=== PATIENT | male | born 1970 | race Caucasian/White ===

== ENCOUNTER 2021-10-12 18:27 | Emergency (ER) | payer OTHER, SELFPAY ==
--- NOTE | 2021-10-12 18:45 | ED.URI ---
HPI - URI/Sore Throat General Chief Complaint: Upper Respiratory Infection Stated Complaint: sinus congestion Time Seen by Provider: 10/12/21 18:32 Source: patient, RN notes reviewed and old records reviewed Mode of arrival: ambulatory Limitations: no limitations History of Present Illness HPI Narrative: 51 [facility] of acute sinus congestion and drainage with headache, facial pain starting at 10 o'clock yesterday. Patient reports that he has forehead pain with sinus congestion. He states that he has been taking Zyrtec DayQuil and NyQuil and some Ibuprofen with no help in his symptoms. Patient reports that his pain to his forehead is 5/10. MD elicited complaint: cough, rhinorrhea, nasal congestion and sinus pain Pertinent past history: sinusitis and seasonal allergies Pain scale (0-10): 5 Able to tolerate fluids by mouth: Yes Related Data Allergies Allergy/AdvReac Type Severity Reaction Status Date / Time No Known Allergies Allergy Unverified 11/05/19 08:56 Review of Systems Review of Systems: CONSTITUTIONAL: Patient reports that he is not sure about fevers, but has had chills, or sweats. EYES: Denies visual changes, redness, or discharge. ENT:Positive for rhinorrhea, congestion, no sore throat, or otalgia. CARDIOVASCULAR: Denies chest pain, palpitations, or edema. RESPIRATORY: some dry cough no dyspnea. GASTROINTESTINAL: Denies abdominal pain, nausea, vomiting, or diarrhea. GENITOURINARY: Denies dysuria or hematuria. SKIN: Denies rash or itching. MUSCULOSKELETAL: Denies back pain, joint pain, or myalgia. NEUROLOGIC: Positive frontal headache, numbness, or weakness. PSYCHIATRIC: Denies anxiety or depression. [facility] Family History Family History Sibling Family history of elevated blood lipids Family history of hypothyroidism Mother Family history of hypothyroidism Father Malignant neoplasm of prostate, Onset Age: 59 Other Family history of chronic obstructive pulmonary disease Social History Social History Smoking status: Never smoker Alcohol intake: current Comments At time of signature, agree with nursing past medical, surgical, social and family history. There is no relevant family history pertinent to the presenting complaint Exam Narrative: GENERAL: Well-appearing, well-nourished, and in no acute distress. HEAD: Normocephalic, atraumatic. EYES: PERRLA and EOMI. ENT: Nares red and swollen with clear rhinorrhea no epistaxis. Mucous membranes moist.TM's normal with dull light reflex, throat with mild redness with no lesions or exudates, some post nasal drainage. NECK: Supple.no lymphadenopathy CHEST: Clear with decreased breath sounds to auscultation. No respiratory distress.SAO2 97% on room air HEART: Regular rate and rhythm. No murmur heard. Normal peripheral pulses. ABDOMEN: Soft, nontender, nondistended, normal active bowel sounds. EXTREMITIES: Normal range of motion. No edema. SKIN: Warm, dry, no rash. NEURO: No focal deficits. Alert and oriented x3. Course Course Level of Care: Express Care Visit MDM - URI/Sore Throat Differential Diagnosis Differential diagnosis: Likely upper respiratory infection, sinusitis, viral infection and pharyngitis Medical Records Attestation: I reviewed the patient's medical records. Critical Care Time Critical Care Time Critical Care Time: No Discharge Plan Discharge Clinical Impression: Bacterial sinusitis Patient Disposition: Home, Self-Care Condition: Stable Instructions: Antibiotic Form, Rhinosinusitis (ED) Additional Instructions: Increase fluids especially juices and water [id number] cough and cold medicine of your choice for your symptoms Claritin, Zyrtec, or Quyen daily take plain Sudafed 2 tablets in a.m. and repeat with 1 tablet around 2 30-3 in afternoon while having symptom
[2021-10-12 18:58] VITALS: BP 125/90; PULSE 88; RESP 16; TEMP 36.5; O2SAT 97
== END 2021-10-12 19:01 | disposition home or self-care (01) ==
PROVIDERS: Emergency Provider Registered Nurse; PCP Family Medicine
DX: J32.9 Chronic sinusitis, unspecified (principal); E78.00 Pure hypercholesterolemia, unspecified; E03.9 Hypothyroidism, unspecified
CPT/HCPCS: 99203; G0463

== ENCOUNTER 2022-04-03 08:01 | Emergency (ER) | payer OTHER, SELFPAY ==
--- NOTE | 2022-04-03 08:05 | ED.URI ---
HPI - URI/Sore Throat General Chief Complaint: Upper Respiratory Infection Stated Complaint: itchy/puffy eyes, cough Time Seen by Provider: 04/03/22 08:05 Source: patient and RN notes reviewed History of Present Illness HPI Narrative: Patient is a 51-year-old male who presents to urgent care with complaints of a cough and itchy eyes states Sunday. Patient states he has been using Visine in the eyes and DayQuil NyQuil. Denies any new fevers. No other acute complaints. No acute distress noted. Patient aware of the plan of care. Some parts of this dictation were generated by voice recognition software and may contain typographical and/or grammatical inaccuracies. Related Data Allergies Allergy/AdvReac Type Severity Reaction Status Date / Time No Known Allergies Allergy Unverified 04/03/22 08:09 Review of Systems Review of Systems: CONSTITUTIONAL: Denies fever, chills, or sweats. EYES: Reports of itchy red watery eyes ENT: Denies rhinorrhea, congestion, sore throat, or otalgia. CARDIOVASCULAR: Denies chest pain, palpitations, or edema. RESPIRATORY: Reports cough without dyspnea GASTROINTESTINAL: Denies abdominal pain, nausea, vomiting, or diarrhea. GENITOURINARY: Denies dysuria or hematuria. SKIN: Denies rash or itching. MUSCULOSKELETAL: Denies back pain, joint pain, or myalgia. NEUROLOGIC: Denies headache, numbness, or weakness. All other systems reviewed are negative, except as documented in HPI. PMFSH Family History Family History Sibling Family history of elevated blood lipids Family history of hypothyroidism Mother Family history of hypothyroidism Father Malignant neoplasm of prostate, Onset Age: 59 Other Family history of chronic obstructive pulmonary disease Social History Social History Smoking status: Never smoker Alcohol intake: current Comments At the time of my signature, I reviewed and agree with the nursing past medical, surgical, social, and family history. There is no relevant family history pertinent to the patient complaint. Exam Narrative: GENERAL: This is a well-nourished, well-developed patient, in no apparent distress. HEAD: normocephalic, atraumatic. EYES: PERRL. Moderately injected bilateral conjunctivae with scant erythema to bilateral sclera. Clear drainage bilaterally. EARS: External ears normal, auditory canals clear and without drainage, TMs normal without perforation. Hearing grossly intact. NOSE: External nose normal with no obvious nasal discharge, nares without redness, no rhinorrhea. THROAT: Mucous membranes moist, posterior pharynx clear. Moderate postnasal drainage NECK: Neck supple CARDIOVASCULAR: Regular rate and rhythm without murmurs, gallops, or rubs. RESPIRATORY: Scant expiratory wheezes throughout. SKIN: warm, intact with no suspicious lesions or rash, good texture and turgor. NEURO: awake, alert, and oriented to person, place and time. There were no obvious focal neurologic abnormalities. EXTREMITIES: No clubbing, cyanosis, or edema. Course Course Level of Care: Express Care Visit Vital Signs Vital signs: Vital Signs Temperature 97.7 F 04/03/22 08:10 Pulse Rate 65 04/03/22 08:10 Respiratory Rate 16 04/03/22 08:10 Blood Pressure 130/80 04/03/22 08:10 Pulse Oximetry 97 04/03/22 08:10 Temperature 97.7 F 04/03/22 08:10 Pulse Rate 65 04/03/22 08:10 Respiratory Rate 16 04/03/22 08:10 Blood Pressure 130/80 04/03/22 08:10 Pulse Oximetry 97 04/03/22 08:10 Reviewed MDM - URI/Sore Throat MDM Narrative Medical decision making narrative: Advised the patient to complete the steroid regimen as prescribed. Be sure to eat and drink with the medication. Try to stop rubbing the eyes and use a cool compress for discomfort. Use the prescription drops to bilateral eyes, wiping applicator tip after each application.
[2022-04-03 08:10] VITALS: BP 130/80; PULSE 65; RESP 16; TEMP 36.5; O2SAT 97
== END 2022-04-03 08:23 | disposition home or self-care (01) ==
PROVIDERS: Emergency Provider Nurse Practitioner Family; PCP Family Medicine
DX: J32.9 Chronic sinusitis, unspecified (principal); H10.13 Acute atopic conjunctivitis, bilateral
CPT/HCPCS: 99213; G0463

== ENCOUNTER 2024-11-04 13:34 | Emergency (ER) | payer OTHER, SELFPAY ==
--- NOTE | 2024-11-04 13:41 | ED.WOUNDLAC ---
HPI - Wound/Laceration General Chief Complaint: Skin/Abscess/Foreign Body Stated Complaint: Staple Removal Time Seen by Provider: 11/04/24 14:10 Source: patient, RN notes reviewed and old records reviewed Mode of arrival: ambulatory Limitations: no limitations History of Present Illness HPI narrative: 54-year-old male presents to the [facility] to have cierra removed. Patient reports that cierra were placed on SundayOctober [facility] at [facility] emergency room, reports negative workup Related Data Home Medications ?Medication ?Instructions ?Recorded ?Confirmed ?Last Taken ?Type rosuvastatin 40 mg tablet mg 11/04/24 Unknown History Allergies Allergy/AdvReac Type Severity Reaction Status Date / Time No Known Allergies Allergy Verified 11/04/24 13:45 Review of Systems Review of Systems: All systems reviewed & are unremarkable except as noted in HPI and below Constitutional: Constitutional: Reports no additional constitutional complaints ENT: Reports system reviewed and no additional complaints, except as documented Cardiovascular: Cardiovascular: Reports no additional cardiovascular complaints, Denies chest pain and Denies dyspnea Respiratory: Respiratory: Reports no additional respiratory complaints, Denies chest congestion, Denies cough and Denies dyspnea Musculoskeletal: Musculoskeletal: Reports no additional musculoskeletal complaints Integumentary/Breasts: Skin/Breast: Reports as per HPI PMFSH Family History Family History Sibling Family history of elevated blood lipids Family history of hypothyroidism Mother Family history of hypothyroidism Father Malignant neoplasm of prostate, Onset Age: 59 Other Family history of chronic obstructive pulmonary disease Social History Social History Smoking status: Never smoker Alcohol intake: current Comments At the time of my signature, I reviewed and agree with the nursing past medical, surgical, social, and family history. There is no relevant family history pertinent to the patient complaint. Exam Const: General: cooperative, healthy appearing, comfortable, no acute distress, well developed, alert and well nourished Nutritional Appearance: well nourished Orientation/consciousness: patient oriented x3 Limitations: no limitations HENMT: Head: normal to inspection Other: Top of head 2 separate sites 1 with 2 cierra on the left anterior portion of scalp, 7 cierra to the left side center scalp Eyes: General: appearance normal, both eyes and all related structures Alignment and Position: alignment normal Neck: Neck: normal visual inspection, full ROM, no lymphadenopathy and no meningeal signs Chest: Chest palpation & inspection: normal inspection of the chest Resp: Effort & Inspection: normal respiratory effort and able to speak in complete sentences Cardio: Rate: regular rate Skin: General skin exam: normal color and no rashes or lesions noted Neuro: General: patient oriented x3, gait normal, moves all extremities and no meningeal signs Cognition (Neuro): normal cognition Speech: normal speech Gait exam (Neuro): Normal gait present Extrem: General: normal to inspection, full ROM, capillary refill normal and normal gait Psych: Appearance: grossly normal and well kempt Mental Status: mental status grossly normal Speech and movement: Normal speech and movement present and Clear speech present Affect: normal affect Attitude: cooperative Course Course Emergency Course: Area cleaned with wound cleanser. Seven cierra in place, had attempted to remove 1, deeper in than the rest. Seven cierra removed without issue Level of Care: Express Care Visit Vital Signs Vital signs: Vital Signs Temperature 98.3 F 11/04/24 13:52 Pulse Rate 78 11/04/24 13:52 Respiratory Rate 16 11/04/24 13:52 Blood Pressure 132/85 11/04/24 13:52 Pulse Oximetry 96 11/04/24 13:52 Temperature 98.3 F 11/04/24 13:52 Pulse Rate 78 11/04/24 13:52 Respiratory Rate 16 11/04/24 13:52 Blood Pressure 132/85 11/04/24 13:52 Pulse Oximetry 96 11/04/24 13:52 Reviewed MDM - Wound/Laceration MDM Narrative Medical decision making narrative: Patient sitting comfortably in exam room. Nontoxic, vitals stable. Patient presents for staple removal. Able to remove cierra without issue Patient appropriate for outpatient treatment with close follow-up Discharge instructions reviewed with patient, as well as provided in writing per nursing staff. The instructions also include specific and strict return/GO TO THE ER as well as f/u information. All questions have been answered, and the patient deny any further questions with discharge and discharge plan. Some parts of this dictation were generated by voice recognition software and may contain typographical and/or grammatical inaccuracies. Differential Diagnosis Differential diagnosis: Likely other (Stable removal) Critical Care Time Critical Care Time Critical Care Time: No Discharge Plan Discharge Clinical Impression: Encounter for removal of cierra Patient Disposition: Home Condition: Stable Instructions: Antibiotic Form, Acute Wounds (ED) Additional Instructions: Wash daily with warm soapy water, pat dry. Do not pick at the wound. You can apply a scant amount of Neosporin twice daily Follow-up with primary care provider Worsening symptoms go to the ER Patient Language: Venezuelan Prescriptions: No Action rosuvastatin 40 mg tablet levothyroxine [Euthyrox] 112 mcg tablet See Rx Instructions .ROUTE .COMPLEX Qty: 30 11RF Dose Instruction: Take 1 tablet by mouth once daily Rx Instructions: Take 1 tablet by mouth once daily Follow-up/Referrals: Roberto Kirkpatrick DO [Primary Care Provider] - 2 Weeks Time of Disposition: 14:21
[2024-11-04 13:52] VITALS: BP 132/85; PULSE 78; RESP 16; TEMP 36.8; O2SAT 96
== END 2024-11-04 14:22 | disposition home or self-care (01) ==
PROVIDERS: Emergency Provider Nurse Practitioner; PCP Internal Medicine
DX: S01.01XD Laceration without foreign body of scalp, subsequent encounter (principal); X58.XXXD Exposure to other specified factors, subsequent encounter
CPT/HCPCS: 99211; G0463

== ENCOUNTER 2024-12-09 09:29 | Outpatient (CLI) | payer OTHER, SELFPAY ==
--- OUTSIDE RECORDS SUMMARY | 2024-12-09 09:39 | XMS_ITS | Clinical Summary ---
Author Organization [facility] Address [address] [place] [address] Care Team Providers Care Manager Community Relations Name Role Phone Roberto Calderon MD Primary Care Provider [phone] Allergies No known active allergies Medications rosuvastatin (CRESTOR) 40 mg tablet Take 1 tablet (40 mg total) by mouth daily 90 tablet 3 11/14/2023 Active sod picosulf-mag ox-citric ac (Clenpiq) 10 mg-3.5 gram- 12 gram/175 mL solution Take as directed 350 mL 11/21/2023 Active aspirin 81 mg enteric coated tablet Take 1 tablet (81 mg total) by mouth daily 11/29/2023 Active levothyroxine (SYNTHROID) 112 mcg tablet Take 1 tablet by mouth once daily 90 tablet 3 12/06/2023 Active diazePAM (VALIUM) 5 mg tablet Take 1 tablet (5 mg total) by mouth 2 (two) times a day 10 tablet 10/26/2024 Active acetaminophen (TYLENOL) 500 mg tablet Take 1-2 tablets (500-1,000 mg total) by mouth every 6 (six) hours as needed for pain (1 tablet for mild to moderate pain. 2 tablets for severe pain) 30 tablet 10/26/2024 Active Active Problems Problem Noted Date Diagnosed Date Encounter for screening for malignant neoplasm o f colon 11/21/2023 Annual physical exam 06/08/2022 Encounters Date Type Department Care Team Description 10/26/2024 5:33 AM CDT - 10/26/2024 6:23 AM CDT Emergency [facility] Emergency Department [address] [place] [address] Florentino Rm MD Fall, initial encounter (Primary Dx); Scalp laceration, initial encounter; Muscle spasms of neck Discharge Disposition: Discharge to home or self care from Last 3 Months Immunizations Immunization Administration Dates Next Due Influenza, Unspecified 03/02/2023(Deferr ed: Patient Refused),03/23/2022(Deferred: Patient Refused) Moderna SARS-CoV-2 Monovalen t Vaccination (12+ YRS) 08/17/2020,07/03/2020 Td, adsorbed 09/28/2003 Tdap 10/26/2024 Medical History Medical History Date Comments Disorder of thyroid Thyroid dise ase Hypothyroidism Hyperlipidemia Family History Medical History Relation Name Comments Thyroid disease Other Family histo ry of Thyroid disorder; Relation Name Status Comments Other Social History Tobacco Use Types Packs/Day Years Used Date Smoking Tobacco: Never Smokeless Tobacco: Never Tobacco Cessation:Counseling Given: Not Answered Alcohol Use Standard Drinks/Week Comments Yes 0 (1 standard drink = 0.6 oz pur e alcohol) AUDIT-C Answer Date Recorded Q1: How often do you have a drink containing alc ohol? 2-4 times a month 12/05/2023 Q2: How many drinks containi ng alcohol do you have on a typical day when you are drinking? 3 or 4 12/05/2023 Q3: How often do you have si x or more drinks on one occasion? Less than monthly 12/05/2023 PHQ-2 Answer Date Recorded PHQ-2 Total Score (If total score is 3 or more points, staff should administer the PHQ-9) 0 11/14/2023 Personal Safety Answer Date Recorded Have you ever been in or are you currently in a harmful physical or emotional relationship or is someone making you feel afraid or unsafe? 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 Gender Identity Not on file Sexual Orientation Not on file Obstetrics History Last Filed Vital Signs Vital Sign Reading Time Taken Comments Blood Pressure 128/96 10/26/2024 6:00 AM CDT Pulse 76 10/26/2024 6:00 AM CDT Temperature 36.8 C (98.3 F) 10/26/2024 1:40 AM CDT Respiratory Rate 16 10/26/2024 6:00 AM CDT Oxygen Saturation 95% 10/26/2024 6:00 AM CDT Inhaled Oxygen Concentration - - Weight 104.3 kg (230 lb) 10/26/2024 12:12 AM CDT Height 170.2 cm (5' 7) 10/26/2024 12:12 AM CDT Body Mass Index 36.02 10/26/2024 12:12 AM CDT Plan of Treatment Health Maintenance Due Date Last Done Comments Hepatitis C Screening 1970 Hepatitis B Screening 1989 Zoster Vaccine (1 of 2) 2021 Covid-19 Vaccine (3 - 2023-2 5 season) 2024 08/17/2020, 07/03/2020 Depression Screening 11/13/2024 11/14/2023, 06/08/2022 Regular Well Visit/Exam 18-64 11/13/2024, 06/08/2022 Influenza Vaccine (#1) 2025 Prostate Cancer Screening-PSA 11/11/2025, 06/15/2022 Colon Cancer Screening-Colonoscopy 12/04/2033 12/05/2023 DTaP/Tdap/Td Vaccine (2 - Td or Tdap) 10/26/2034 10/26/2024, 09/28/2003 Pneumococcal vaccine <65 Aged Out No longer eligible based on patient's age to complete this topic Procedures Procedure Name Priority Date/Time Associated Diagnosis Comments TN SIMPLE REPAIR SCALP/NECK/AX/GENIT/ TRUNK 2.5CM/< Routine 10/26/2024 6:22 AM CDT TN SIMPLE REPAIR SCALP/NECK/AX/GENIT/ TRUNK 2.5CM/< Routine 10/26/2024 6:[address] HEAD AND CERVICAL SPINE WO CONTRAST ED 10/26/2024 12:48 AM CDT COLONOSCOPY 12/05/2023 9:14 AM CDT PSA SCREEN Routine 11/12/2023 1:15 PM CDT Annual physical exam from Last 3 Months or Most Recently Relevant to Health Maintenance Results * TN SIMPLE REPAIR SCALP/NECK/AX/GENIT/TRUNK 2.5CM/< (10/26/2024 6:22 AM CDT) Narrative Florentino Rm MD - 10/26/2024 6:22 AM CDT Florentino Rm MD 10/26/2024 6:23 AM Laceration Repair Date/Time: 10/26/2024 6:22 AM Performed by: Florentino Rm MD Authorized by: Florentino Rm MD RN Notified of Procedure: yes Informed consent: Risks, benefits, alternatives discussed Patient's stated name/ matches armband: Yes Allergies confirmed: yes Consent form signed, dated, timed; matches correct patient, intended procedure and site: No consent form due to emergent status Imaging: Pertinent imaging reviewed, correctly oriented and match to patient identifiers Lab/Diag test results: N/a Supplies, devices and special equipment are available: yes Site/side marked: n/a Immediately prior to the procedure a time out was called: a verbal verification by the procedure participants confirmed correct patient identity, correct site/side marked and visible (if applicable); agreement on procedure to be done; and correct patient positioning Anesthesia method: Local infiltration Local anesthetic: Lidocaine 1% WITH epi Location: Scalp Scalp location: Frontal Length (cm): 0.5 Repair type: Simple Preparation: Patient was prepped and draped in usual sterile fashion Contaminated: no Area cleansed with: Saline Amount of cleaning: Standard Irrigation solution: Sterile saline Irrigation method: Pressure wash Visualized foreign bodies/material removed: no Repair method: Mino Number of mino: 2 Approximation: Close Vermilion border: well-aligned Dressing: Open (no dressing) Patient tolerance of procedure: Tolerated well, no immediate complications Any special post procedure monitoring, testing or other considerations: n/a All specimens identified, labeled and matched to patient identification: n/a Responsible libertarian for transporting specimen(s) to lab determined: n/a Florentino Rm MD IN CLINIC/BEDSIDE ORDERABLE S Final Result * TN SIMPLE REPAIR SCALP/NECK/AX/GENIT/TRUNK 2.5CM/< (10/26/2024 6:20 AM CDT) Narrative Florentino Rm MD - 10/26/2024 6:20 AM CDT Florentino Rm MD 10/26/2024 6:22 AM Laceration Repair Date/Time: 10/26/2024 6:20 AM Performed by: Florentino Rm MD Authorized by: Florentino Rm MD RN Notified of Procedure: yes Informed consent: Risks, benefits, alternatives discussed Patient's stated name/ matches armband: Yes Allergies confirmed: yes Imaging: N/a and pertinent imaging reviewed, correctly oriented and match to patient identifiers Lab/Diag test results: N/a Supplies, devices and special equipment are available: yes Site/side marked: n/a Anesthesia method: Local infiltration Local anesthetic: Lidocaine 1% WITH epi Sedation used: no Location: Scalp Scalp location: Frontal Length (cm): 1.5 Repair type: Simple Preparation: Patient was prepped and draped in usual sterile fashion Contaminated: no Area cleansed with: Saline Amount of cleaning: Standard Irrigation solution: Sterile saline Irrigation method: Pressure wash Visualized foreign bodies/material removed: no Repair method: Turin Number of mino: 5 Vermilion border: well-aligned Dressing: Open (no dressing) Patient tolerance of procedure: Tolerated well, no immediate complications All guidewires, needles, sponges or other items are accounted for: no Any special post procedure monitoring, testing or other considerations: n/a All specimens identified, labeled and matched to patient identification: n/a Responsible libertarian for transporting specimen(s) to lab determined: n/a Florentino Rm MD IN CLINIC/BEDSIDE ORDERABLE S Final Result * CT Head and Cervical Spine WO Contrast (10/26/2024 12:48 AM CDT) Anatomical Region Laterality Modality Head and Neck N/A Computed Tomogra phy 10/26/2024 1:09 AM CDT Impressions 10/26/2024 8:56 AM CDT 1. No acute intracranial process. 2. No evidence of acute fracture in the cervical spine. Dictated by: Ty Rubi MD The radiology attending physician has personally reviewed this study, and had reviewed and/or edited this written report and agrees with it. Electronically signed by: David Adams M.D. Narrative 10/26/2024 8:56 AM CDT EXAMINATION: 1. CT head without contrast 2. CT of the cervical spine without contrast HISTORY: Fall with loss of consciousness TECHNIQUE: CT of the head was performed with images acquired from skull base to vertex without intravenous contrast. CT of the cervical spine was performed according to the standard protocol without intravenous contrast. COMPARISON: None Available. FINDINGS: HEAD: Right cerebellar arachnoid cyst. There is no acute intracranial hemorrhage. Ventricles are of normal size and morphology. No mass effect or midline shift is present. The sauer-white matter differentiation is normal. The visualized portions of the orbits are normal. The visualized portions of the mastoids are normal. Mucosal thickening in bilateral maxillary, ethmoid, and frontal sinuses. No fractures are identified. CERVICAL SPINE: The alignment of the cervical spine is normal. There is no acute fracture. Vertebral bodies are normal in height without compression fractures. Intervertebral disk heights are normal. The craniocervical junction is normal. Limited views of the skull base appear normal. The sphenoid sinus is well aerated. No soft tissue abnormality is identified. There is multilevel facet and uncovertebral joint arthropathy with varying degrees of neural foraminal stenosis. Multilevel degenerative disc disease without high-grade canal stenosis. Procedure Note David Adams MD - 10/26/2024 EXAMINATION: 1. CT head without contrast 2. CT of the cervical spine without contrast HISTORY: Fall with loss of consciousness TECHNIQUE: CT of the head was performed with images acquired from skull base to vertex without intravenous contrast. CT of the cervical spine was performed according to the standard protocol without intravenous contrast. COMPARISON: None Available. FINDINGS: HEAD: Right cerebellar arachnoid cyst. There is no acute intracranial hemorrhage. Ventricles are of normal size and morphology. No mass effect or midline shift is present. The sauer-white matter differentiation is normal. The visualized portions of the orbits are normal. The visualized portions of the mastoids are normal. Mucosal thickening in bilateral maxillary, ethmoid, and frontal sinuses. No fractures are identified. CERVICAL SPINE: The alignment of the cervical spine is normal. There is no acute fracture. Vertebral bodies are normal in height without compression fractures. Intervertebral disk heights are normal. The craniocervical junction is normal. Limited views of the skull base appear normal. The sphenoid sinus is well aerated. No soft tissue abnormality is identified. There is multilevel facet and uncovertebral joint arthropathy with varying degrees of neural foraminal stenosis. Multilevel degenerative disc disease without high-grade canal stenosis. IMPRESSION: 1. No acute intracranial process. 2. No evidence of acute fracture in the cervical spine. Dictated by: Ty Rubi MD The radiology attending physician has personally reviewed this study, and had reviewed and/or edited this written report and agrees with it. Electronically signed by: David Adams M.D. us Anjum Guerrero MD IMG CT PROCEDURES Final Re sult * Colonoscopy (12/05/2023 9:14 AM CDT) Anatomical Region Laterality Modality Other Narrative Procedure Note Florentino Lane MD - 12/05/2023 9:14 AM CDT [facility] Endoscopy Lab Patient Name: Hemanth Romeo Procedure Date: 12/05/2023 9:14 AM Date of : 1970 Admit Type: Outpatient Age: 53 Gender: Male Note Status: Finalized Attending MD: Florentino Lane M.D. Procedure Date: 12/05/2023 Procedure: Colonoscopy Indications: Screening for colorectal malignant neoplasm Providers: Florentino Lane M.D., Maria Luz Milton CRNA (Anesthesia Staff), Jonna Ball RN, Kamila, Wallpaper Printer Helper Referring MD: Roberto Calderon M.D. Medicines: Monitored Anesthesia Care Complications: No immediate complications. Estimated blood loss: Minimal. Estimated Blood Loss: Estimated blood loss was minimal. Procedure: Pre-Anesthesia Assessment: - Prior to the procedure, a History and Physicalwas performed, and patient medications and allergieswere reviewed. The patient's tolerance of previous anesthesia was also reviewed. The risks andbenefits of the procedure and the sedation options and risks were discussed with the patient. All questions were answered, and informed consent was obtained. Prior Anticoagulants: The patient has taken noanticoagulant or antiplatelet agents. ASA Grade Assessment: II -A patient with mild systemic disease. After reviewing the risks and benefits, the patient was deemed in satisfactory condition to undergo the procedure. - The risks and benefits of the procedure and the sedation options and risks were discussed with the patient. All questions were answered and informed consent was obtained. After I obtained informed consent, the scope was passed under direct vision. Throughout theprocedure, the patient's blood pressure, pulse, and oxygen saturations were monitored continuously. The scopewas passed under direct vision. The Colonoscope was introduced through the anus and advanced to the the cecum, identified by appendiceal orifice andileocecal valve. The colonoscopy was performed without difficulty. The patient tolerated the procedurewell. The quality of the bowel preparation was excellent. The quality of the bowel preparation was evaluated using the BBPS ([place] Bowel Preparation Scale)with scores of: Right Colon = 3, Transverse Colon = 3and Left Colon = 3 (entire mucosa seen well with no residual staining, small fragments of stool oropaque liquid). The total BBPS score equals 9. Theileocecal valve, appendiceal orifice, and rectum were photographed. The bowel preparation used wasGoLYTELY via split dose instruction. Findings: Hemorrhoids were found on perianal exam. A 2 mm polyp was found in the rectum. The polyp was sessile. Thepolyp was removed with a cold forceps. Resection and retrieval werecomplete. External hemorrhoids were found during retroflexion. Scattered diverticula were found in the entire colon. Impression: 1) One 2 mm polyp in the rectum, removed with acold forceps. Resected and retrieved. 2) Scattered diverticula were found in the entire colon. 3) External hemorrhoids. Recommendation: - Discharge patient to home (ambulatory). - If the pathology report reveals adenomatoustissue, then repeat the colonoscopy for surveillance in 7 years. - If the pathology report indicates hyperplastic polyp, then repeat colonoscopy for screeningpurposes in 10 years. Procedure Code(s): --- Professional --- 16236, Colonoscopy, flexible; with biopsy, singleor multiple Diagnosis Code(s): --- Professional --- Z12.11, Encounter for screening for malignantneoplasm of colon K64.4, Residual hemorrhoidal skin tags D12.8, Benign neoplasm of rectum K57.30, Diverticulosis of large intestine without perforation or abscess without bleeding CPT copyright 2020 [employer]. All rights reserved. The codes documented in this report are preliminary and upon steward/stewardess third reviewmay be revised to meet current compliance requirements. Florentino Lane M.D. 12/05/2023 9:45:19 AM Number of Addenda: 0 Note Initiated On: 12/05/2023 9:[address] MD ENDOSCOPY PROCEDURES Taylor l Result * PSA screen (11/12/2023 1:15 PM CDT) PSA-Total 0.74 <=3.90 ng/mL Comment: Interpretive Data AGE SEX REFERENCE INTERVAL 0 minutes-150 years Female None 0 minutes-49 years Male None 50-59 years Male 0-3.90 60-69 years Male 0-5.40 70-79 years Male 0-6.20 80-150 years Male 0-6.20 The Silvia PSA Total assay procedure was used. Results from different manufacturers or methods may not be comparable. Serial testing should be performed using the same method. Current interpretive data last revised 21. Testing performed by: [facility], [address] [place] [address], [place]., [address] Blood 11/12/2023 1:15 PM CDT 11/12/2023 1:50 PM CDT us Roberto Calderon MD LAB BLOOD ORDERABLES Final Re sult [facility] [address] [facility] [place] [address] from Last 3 Months or Most Recently Relevant to Health Maintenance Insurance [facility] CHOICE PLUS [facility] HMO/PPO Address: [facility] [address] [place] [address] [facility] CHOICE PLUS [facility]/PPO Address: [place] [address] [facility] Address: [place] [address] [facility] H[facility]/PPO Address: [place] [address] Care Teams Manager Community Relations Relationship Specialty Start Date End Date Roberto Calderon MD PCP - General Family Medicine 06/08/22
--- OUTSIDE RECORDS SUMMARY | 2024-12-09 09:39 | XMS_ITS | Continuity of Care Document ---
Author Organization [facility] Address [address] [place] [address] [place] [address] Phone Care Team Providers Care Grease Renderer Name Role Phone Blu Crawford DO Unavailable Unavailable Advance Directives Directive Yes / No Effective Date File Name No Information Encounters Encounter Description Practice Location Reason(s) For Visit Diagnoses Date Provider Providers Copied on Encounter [facility], [id number] [place] [address] [address], [place], [place], [id number], [place] tel:[phone] [facility] No Information Yvette Landrum. [address] [place], [address], [place]. tel: [phone] Family History Family Member Type Diagnosis Age At Onset No Information Payers Payer name Insurance type Covered green party ID Authoriza tion(s) No Information Social [...]
--- OUTSIDE RECORDS SUMMARY | 2024-12-09 09:39 | XMS_ITS | Referral Summary ---
Author Organization [facility] Address [address] [place] [address] Care Team Providers Care Legal Billing Coordinator Name Role Phone Roberto Calderon MD Primary Care Provider [phone] Encounters Date Type Department Care Team Description 10/26/2024 5:33 AM CDT - 10/26/2024 6:23 AM CDT Emergency [facility] Emergency Department [address] [place] [address] Florentino Rm MD Fall, initial encounter (Primary Dx); Scalp laceration, initial encounter; Muscle spasms of neck Discharge Disposition: Discharge to home or self care from Last 3 Months Allergies No known active allergies Medications rosuvastatin [...] f colon 11/21/2023 Annual physical exam 06/08/2022 Immunizations Immunization Administration Dates Next Due Influenza, Unspecified 03/02/2023(Deferr ed: Patient Refused),03/23/2022(Deferred: Patient Refused) Moderna SARS-CoV-2 Monovalen t Vaccination (12+ YRS) 08/17/2020,07/03/2020 Td, adsorbed 09/28/2003 Tdap 10/26/2024 Social History Tobacco Use Types Packs/Day Years [...] on file 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 Gender Identity Not on file Sexual Orientation Not on file Last Filed Vital Signs Vital Sign Reading [...] 10/26/2024 12:12 AM CDT Plan of Treatment Not on file Procedures Procedure Name Priority Date/Time Associated Diagnosis Comments VA SIMPLE REPAIR SCALP/NECK/AX/GENIT/ TRUNK 2.5CM/< Routine 10/26/2024 6:22 AM CDT VA SIMPLE REPAIR SCALP/NECK/AX/GENIT/ TRUNK 2.5CM/< Routine 10/26/2024 6:[address] HEAD AND CERVICAL SPINE WO CONTRAST ED 10/26/2024 12:48 AM CDT COLONOSCOPY 12/05/2023 9:14 AM CDT PSA SCREEN Routine 11/12/2023 1:15 PM CDT Annual physical exam from Last 3 Months or Most Recently Relevant to Health Maintenance Results * VA SIMPLE REPAIR SCALP/NECK/AX/GENIT/TRUNK 2.5CM/< (10/26/2024 6:22 AM [...] Visualized foreign bodies/material removed: no Repair method: Tyner Number of mino: 2 Approximation: Close Vermilion border: well-aligned Dressing: Open (no dressing) Patient tolerance of procedure: Tolerated well, no immediate complications Any special post procedure monitoring, testing or other considerations: n/a All specimens identified, labeled and matched to patient identification: n/a Responsible democrat for transporting specimen(s) to lab determined: n/a Florentino Rm MD IN CLINIC/BEDSIDE ORDERABLE S Final Result * VA SIMPLE REPAIR SCALP/NECK/AX/GENIT/TRUNK 2.5CM/< (10/26/2024 6:20 AM [...] no Repair method: Mino Number of mino: 5 Vermilion border: well-aligned Dressing: Open (no dressing) Patient tolerance of procedure: Tolerated well, no immediate complications All guidewires, needles, sponges or other items are accounted for: no Any special post procedure monitoring, testing or other considerations: n/a All specimens identified, labeled and matched to patient identification: n/a Responsible democrat for transporting specimen(s) to lab determined: n/a [...] it. Electronically signed by: David Adams M.D. Anjum Guerrero MD IMG CT PROCEDURES Final Re sult * Colonoscopy (12/05/2023 9:14 AM CDT) Anatomical Region Laterality Modality Other Narrative Procedure Note Florentino Lane MD - 12/05/2023 9:14 AM CDT [facility] Endoscopy Lab Patient Name: Hemanth Romeo Procedure Date: 12/05/2023 9:14 AM Date of : 1970 Admit Type: Outpatient Age: 53 Gender: Male Note Status: Finalized Attending MD: Florentino Lane M.D. Procedure Date: 12/05/2023 Procedure: Colonoscopy Indications: Screening for colorectal malignant neoplasm Providers: Florentino Lane M.D., Maria Luz Milton CRNA (Anesthesia Staff), Jonna Ball, CHIRAG, Kamila, Warehouse Stock Clerk Referring MD: Roberto Calderon M.D. Medicines: Monitored [...] bowel preparation was evaluated using the BBPS ([place] Bowel Preparation Scale)with scores of: Right Colon [...] 10 years. Procedure Code(s): --- Professional --- 62106, Colonoscopy, flexible; with biopsy, singleor multiple Diagnosis Code(s): --- Professional --- Z12.11, Encounter for screening for malignantneoplasm of colon K64.4, Residual hemorrhoidal skin tags D12.8, Benign neoplasm of rectum K57.30, Diverticulosis of large intestine without perforation or abscess without bleeding CPT copyright 2020 [employer] [place] [employer]. All rights reserved. The codes documented in this report are preliminary and upon board worker reviewmay be revised to meet current compliance requirements. Florentino Lane M.D. 12/05/2023 9:45:19 AM Number of Addenda: 0 Note Initiated On: 12/05/2023 9:[address]ino Lane MD ENDOSCOPY PROCEDURES Atylor l Result * PSA screen (11/12/2023 1:15 [...] data last revised 21. Testing performed by: [facility], [address] [place] [address]., [address] Blood 11/12/2023 1:15 PM CDT 11/12/2023 1:50 PM CDT us Roberto Calderon MD LAB BLOOD ORDERABLES Final Re sult [facility] [address] [facility] Department [place] [address] from Last 3 Months or Most Recently Relevant to Health Maintenance Insurance [facility] CHOICE PLUS Care Teams Legal Billing Coordinator Relationship Specialty Start Date End Date Roberto Calderon MD PCP - General Family Medicine 06/08/22
[2024-12-09 12:57] LABS: Hematocrit 50.1 % (42.0-52.0); Hemoglobin 16.0 g/dL (14.0-18.0); Immature Granulocyte Percent A 0.4 % (0-0.5); Lymphocytes Absolute Auto 1.90 K/mm3 (0.9-3.2); Mean Corpuscular HGB Conc 31.9 g/dl (32-36); Mean Corpuscular Hemoglobin 30.2 pg (26-34); Mean Corpuscular Volume 94.5 fl (80-100); Nucleated Red Blood Cells Absolute Auto 0.000 K/mm3 (0.0-0.012); Nucleated Red Blood Cells Perc 0.0 % (0.0-0.2); Platelet Count Result 146 k/mm3 (150-375); Red Blood Count 5.30 M/mm3 (4.6-6.20); White Blood Count 8.3 K/mm3 (4.5-10.0)
[2024-12-09 13:06] LABS: Alanine Aminotransferase 43 U/L (6-50); Albumin Level 4.5 g/dL (3.5-5.1); Alkaline Phosphatase 75 U/L (38-126); Anion Gap 8 mmol/L (4-12); Aspartate Amino Transferase 58 U/L (17-59); Bilirubin,Total 0.7 mg/dL (0.2-1.3); Blood Urea Nitrogen 11 mg/dL (9-20); Calcium 9.2 mg/dL (8.4-10.2); Carbon Dioxide 29 mmol/L (22-30); Chloride 99 mmol/L (98-107); Cholesterol 176 mg/dL (0-200); Estimated Glomerular Filt Rate 60; Glucose 100 mg/dL (65-110); HDL Direct 27 mg/dL; Potassium 3.9 mmol/L (3.4-5.0); Sodium 136 mmol/L (137-145); Total Protein 7.7 g/dL (6.3-8.2); Triglycerides 223 mg/dL (<150)
[2024-12-09 13:27] LABS: Free T3 3.93 pg/mL (2.71-6.16); Free T4 Free Thyroxine 0.66 ng/dL (0.78-2.19)
[2024-12-09 17:07] LABS: Thyroid Stimulating Hormone 13.300 uIU/mL (0.465-4.680)
[2024-12-09 17:12] LABS: Prostate Specific Antigen 1.0 ng/mL (< OR = 4.0)
== END 2024-12-09 09:30 | disposition home or self-care (01) ==
LOC: ANHGOSHLAB 09:30
PROVIDERS: PCP Internal Medicine; Visit Provider Internal Medicine
DX: E03.9 Hypothyroidism, unspecified (principal); E78.2 Mixed hyperlipidemia; R53.83 Other fatigue; Z82.49 Family history of ischemic heart disease and other diseases of the circulatory system; Z13.29 Encounter for screening for other suspected endocrine disorder; Z13.0 Encounter for screening for diseases of the blood and blood-forming organs and certain disorders involving the immune mechanism; Z13.228 Encounter for screening for other metabolic disorders; Z12.5 Encounter for screening for malignant neoplasm of prostate
CPT/HCPCS: 36415; 80053; 80061; 82172; 84153; 84439; 84443; 84481; 85025; G0103

== ENCOUNTER 2024-12-25 08:39 | Outpatient (CLI) | payer OTHER, SELFPAY ==
--- OUTSIDE RECORDS SUMMARY | 2024-12-25 08:45 | XMS_ITS | Clinical Summary ---
Author Organization [facility] Address [address] [place] [address] Care Team Providers Care Profile Stitching Machine Operator Name Role Phone Roberto Calderon MD Primary Care Provider [phone] Social History Tobacco Use Types Packs/Day Years Used Date Smoking Tobacco: Never Assessed Sex and Gender Information Value Date Recorded Sex Assigned at Not on file Legal Sex Male 11:52 AM CDT Gender Identity Not on file Sexual Orientation Not on file Plan of Treatment Health Maintenance Due Date Last Done Comments Colorectal Cancer Screening Colonoscopy (10 Years) 1971 Annual Physical 1974 Hepatitis C 1989 Hepatitis B Vaccines (1 of 3 - 19+ 3-dose series) 1990 DTaP, Tdap and Td Vaccines ( 1 - Tdap) 09/29/2003 09/28/2003 Pneumococcal Vaccine: 50+ Years (1 of 1 - PCV) 2021 Zoster Vaccines (1 of 2) 2021 COVID-19 Vaccine (3 - 2023-2 5 season) 2024 08/17/2020, 07/03/2020 Meningococcal B Vaccine Aged Out No l onger eligible based on patient's age to complete this topic Meningococcal Vaccine Aged Out No sandra scott eligible based on patient's age to complete this topic RSV Immunizations Under 20 Months Aged Out No longer eligible b ased on patient's age to complete this topic Insurance [facility] Care Teams Profile Stitching Machine Operator Relationship Specialty Start Date End Date Roberto Calderon MD [address] [phone] PCP - General FAMILY PRACTICE 11/16/23
--- OUTSIDE RECORDS SUMMARY | 2024-12-25 08:45 | XMS_ITS | Clinical Summary ---
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] and matched to patient identification: n/a Responsible constitution party for transporting specimen(s) to lab determined: n/a Florentino Rm MD IN CLINIC/BEDSIDE ORDERABLE S Final Result * SD SIMPLE REPAIR SCALP/NECK/AX/GENIT/TRUNK 2.5CM/< (10/26/2024 6:20 AM [...] and matched to patient identification: n/a Responsible constitution party for transporting specimen(s) to lab determined: n/a [...] Lane MD - 12/05/2023 9:14 AM CDT [facility] Endoscopy Lab Patient Name: Hemanth Romeo Procedure Date: 12/05/2023 9:14 AM Date of : 1970 Admit Type: Outpatient Age: 53 Gender: Male Note Status: Finalized Attending MD: Florentino Lane M.D. Procedure Date: 12/05/2023 Procedure: Colonoscopy Indications: Screening for colorectal malignant neoplasm Providers: Florentino Lane M.D., Maria Luz Milton CRNA (Anesthesia Staff), Jonna Ball RN, Kamila, Clinical Rehabilitation Aide Referring MD: Roberto Calderon M.D. Medicines: Monitored [...] bowel preparation was evaluated using the BBPS ([place] Bowel Preparation Scale)with scores of: Right Colon [...] 10 years. Procedure Code(s): --- Professional --- 00380, Colonoscopy, flexible; with biopsy, singleor multiple Diagnosis Code(s): --- Professional --- Z12.11, Encounter for screening for malignantneoplasm of colon K64.4, Residual hemorrhoidal skin tags D12.8, Benign neoplasm of rectum K57.30, Diverticulosis of large intestine without perforation or abscess without bleeding CPT copyright 2020 [employer]. All rights reserved. The codes documented in this report are preliminary and upon certified credit counselor reviewmay be revised to meet current compliance [...] data last revised 21. Testing performed by: [facility], [address] [place] [address], [place]., [address] Blood 11/12/2023 1:15 PM CDT 11/12/2023 1:50 PM CDT us Roberto Calderon MD LAB BLOOD ORDERABLES Final Re sult [facility] [address] [facility] Department [place] [address] from Last 3 Months or Most Recently Relevant to Health Maintenance Insurance [facility] CHOICE PLUS [facility] H[facility]/PPO Address: [facility] [address] [place] [address] [facility] CHOICE PLUS [facility] H[facility]/PPO Address: [place] [address] [facility]/PPO Address: [place] [address] [facility] H[facility]/PPO Address: [place] [address] Care Teams Or First Assist Registered Nurse Relationship Specialty Start Date End Date Roberto Calderon MD PCP - General Family Medicine 06/08/22
--- OUTSIDE RECORDS SUMMARY | 2024-12-25 08:46 | XMS_ITS | Continuity of Care Document ---
Author Organization [facility] Address [address] [place] [address] [address] [place] [address] Phone Care Team Providers Care Professor Of Medicine Name Role Phone Blu Crawford DO Unavailable Unavailable Advance Directives Directive Yes / No Effective Date File Name No Information Encounters Encounter Description Practice Location Reason(s) For Visit Diagnoses Date Provider Providers Copied on Encounter [facility], [id number] [place] [address] [address], [place], [place], [id number], [place] tel:[phone] [facility] No Information Yvette Landrum. [address] [place], [address], [place]. tel: [phone] Family History Family Member Type Diagnosis Age At Onset No Information Payers Payer name Insurance type Covered alliance party ID Authoriza tion(s) No Information Social [...]
[2025-01-19 13:21] VITALS: BMI 36.8
--- NOTE | 2025-01-19 13:21 | P.SLEEP_ITS ---
Sleep Study - Home Unattended Date of Study: 12/25/24 Ordering Provider: Roberto Kirkpatrick DO Interpreting Provider: Luana Gonzales DO Home Sleep Study Type: Watch PAT Height: 1.7 m Weight: 106.594 kg Body Mass Index: 36.8 Neck Circumference (inches): 19 Brigantine: 10 Reason for Sleep Study Daytime hypersomnia Sleep History The patient is a 54-year-old male that had a sleep study ordered for evaluation of sleep apnea. The patient admits to snoring loudly, excessive daytime sleepiness, interruptions in breathing while asleep and trouble falling asleep. He does choke or gasp at night. He denies having trouble breathing on his back. He denies morning headaches. He does have a dry or sore mouth / throat in the morning. He denies nocturnal heartburn. He denies nocturia. He denies having difficulty staying asleep. He denies having difficulty returning to sleep if he wakes up throughout the night. He denies any hypnotic or sedative use. He denies feeling anxious about sleep. He does feel tired or sleepy during the day. He does feel tired in the morning. He does have the urge to fall asleep during the day. He denies feeling drowsy while driving. He denies sleep paralysis, cataplexy and hypnagogic/ hypnopompic hallucinations. He does clench or grind his teeth. He denies kicking or jerking his legs excessively. He denies having a restless feeling in his legs. He goes to bed at midnight every night. It takes him 90 minutes to fall asleep. He gets 5 hours of sleep on work days and 5-1/2 hours of sleep on his days off. His sleep is a little more restorative on his days off. He denies any planned naps. He denies dream enactment behavior. He denies sleep walking. He consumes 1-2 cups of caffeinated beverage per day. He has 1 alcoholic beverage 1-2 nights per week. He smokes less than 5 cigarettes per day. He exercises 1-2 nights per week. [facility] Past Medical History Medical History Family history of coronary artery disease Mixed hyperlipidemia Hypothyroidism (acquired) Family History Family History Sibling Family history of elevated blood lipids Family history of hypothyroidism Mother Family history of hypothyroidism Heart problem Father Malignant neoplasm of prostate, Onset Age: 59 Heart problem Asthma Dementia Grandparent Thyroid disorder Grandparent Heart problem Other Family history of chronic obstructive pulmonary disease Social History Social History Smoking status: Never smoker Tobacco type: smokeless tobacco Smokeless tobacco user: chewing tobacco Second hand tobacco smoke exposure: No Alcohol intake: current Alcohol use details: occasionally Substance use: never Do You Feel Safe in your Home?: Yes Lack of Transportation: No Lack of Food: Never True Current Housing: I Have Housing Concerned About Future Housing: No Difficulty Paying Gas/Electric Bills: No Difficulty Paying for Meds: No Currently Unemployed: No Education: Master's Degree or Higher Difficulty w/ Childcare or Family Care: No Living arrangements: with family Occupation/Education: occupation Gender identity (if verbalized by the patient): Male Sexual Orientation (if Verbalized by the Patient): Straight or Heterosexual Agree to blood products: Yes Medications Home Medications ?Medication ?Instructions ?Recorded ?Confirmed ?Type levothyroxine 112 mcg tablet See Rx Instructions .Rout e 12/15/20 12/09/24 Rx (Euthyrox) .COMPLEX #30 tabs rosuvastatin 40 mg tablet 40 mg PO DAILY 12/16/24 His tory Sleep Procedure The sleep study was completed using [employer] a technically adequate device with seven channels: peripheral arterial tone, actigraphy, body position, snore, respiratory movement, pulse oximetry, sleep staging, and heart rate. Prior to using the device, the patient received verbal and written instructions for its application and was provided with the help desk phone number for additional telephonic instruction with 24-hour availability of qualified personnel to answer questions. The study was scored using CMS guidelines. Sleep Architecture The total recording time is 6 hrs, 13 min. The total sleep time is 5 hrs, 54 min. Sleep latency is 10 minutes. REM latency is 87 minutes. The patient had 2 episodes of waking. Sleep architecture shows 24.1% deep sleep, 45.4% light sleep, and (as % Total Sleep Time) showed NREM (Light 45.4%; Deep 24.1%), and a 30.5% stage REM. The patient spent 39.2% of total sleep time in the supine position. Sleep efficiency was 94.91. Respiratory Analysis The overall AHI (pAHI 4%:) is 19.0. The overall AHI (pAHI 3%:) is 26.0. The central AHI is 0.5. The AHI was 16.6 in NREM and 46.7 in REM sleep. The AHI was 26.6 in Supine and 25.7 in Non-supine sleep. Percent of Pedro Whelan r espirations is 0.0. Oximetry Data The oxygen desaturation index (MEENA 4%:) is 17.5. The mean saturation is 92%, and the lowest saturation is 77%. Time spent with saturation < 88% is 7.7 minutes. Snoring Profile Snoring average intensity is 55 dB. The patient snored above 45 decibels for 277.0 minutes, 78.1% of sleep time. Cardiac Profile The average pulse rate is 62 beats per minutes. The lowest pulse rate is 52 bpm. The highest pulse rate reported is 99 bpm. Atrial fibrillation was not detected. Premature beats occur <0.1 per minute. Assessment and Plan Assessment and Plan (1) CAN (obstructive sleep apnea): Code(s): G47.33 - Obstructive sleep apnea (adult) (pediatric) Status: Acute Assessment and Plan: The patient had an overall AHI of 19.0 with desaturation down to 77%. This is consistent with moderate sleep apnea. I recommend that the patient be prescribed AutoPAP 5-15 cm H2O, CPAP mask/filters/tubing and heated humidity. A mandibular advancement device is also an acceptable treatment option. This should be used with all episodes of sleep.? Compliance should be reviewed within 31-90 days of starting therapy for usage greater than 4 hours per night greater than 70% of the nights. The patient should be asked about symptoms such as?excessive daytime sleepiness, quality of sleep, decreased nocturia, increased?mental functioning such as memory, mood, and concentration. Data The data obtained during this sleep study is adequate for interpretation. Certification This sleep study has been reviewed by a board certified sleep medicine physician.
== END 2024-12-26 10:46 | disposition home or self-care (01) ==
LOC: ANHCSM 08:39
PROVIDERS: PCP Internal Medicine; Visit Provider Internal Medicine
DX: G47.19 Other hypersomnia (principal); G47.33 Obstructive sleep apnea (adult) (pediatric)
CPT/HCPCS: 95800

== ENCOUNTER 2025-02-10 10:46 | Outpatient (CLI) | payer OTHER, SELFPAY ==
--- OUTSIDE RECORDS SUMMARY | 2001-03-14 03:30 | XMS_ITS | Continuity of Care Document ---
Author Organization 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 [address] [place], [address], [place]. tel: [phone] Family History Family Member Type Diagnosis Age At Onset No Information Payers Payer name Insurance type Covered constitution party ID Authoriza tion(s) No Information Social History Type Description Quantity Date Captured Comments Sex Male Smoking Status No Information Chief Complaint And Reason For Visit No Information Reason For Referral Reason For Referral No Information History Of Present Illness Encounter Date Complaint History Of Prese nt Illness No Information Functional Status Date Functional Assessmen t No Information Instructions Date Instruction Additional Infor mation No Information Assessments Type Assessment Date No Information Patient Care Teams Name Effective Dates (start - stop) Status Members No Information
--- OUTSIDE RECORDS SUMMARY | 2025-02-10 11:31 | XMS_ITS | Clinical Summary ---
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 Gender Identity Not on file Sexual Orientation [...] 1989 Zoster Vaccine (1 of 2) 2021 Depression Screening 11/13/2024 11/14/2023, 06/08/2022 Regular Well Visit/Exam 18-64 11/13/2024, 06/08/2022 Covid-19 Vaccine (3 - 2024-2 6 season) 2025 08/17/2020, 07/03/2020 Influenza Vaccine (#1) 2025 Prostate Cancer Screening-PSA 11/11/2025, 06/15/2022 Colon Cancer Screening-Colonoscopy 12/04/2033 12/05/2023 DTaP/Tdap/Td Vaccine (2 - Td or Tdap) 10/26/2034 10/26/2024, 09/28/2003 Pneumococcal vaccine <65 Aged Out No longer eligible based on patient's age to complete this topic Procedures Procedure Name Priority Date/Time Associated Diagnosis Comments COLONOSCOPY 12/05/2023 9:14 AM CDT PSA SCREEN Routine 11/12/2023 1:15 PM CDT Annual physical exam from Last 3 Months or Most Recently Relevant to Health Maintenance Results * Colonoscopy (12/05/2023 9:14 AM CDT) Anatomical Region Laterality Modality Other Narrative Procedure Note Florentino Lane MD - 12/05/2023 9:14 AM CDT [facility] Endoscopy Lab Patient Name: Hemanth Romeo Procedure Date: 12/05/2023 9:14 AM Date of : 1970 Admit Type: Outpatient Age: 53 Gender: Male Note Status: Finalized Attending MD: Florentino Lane M.D. Procedure Date: 12/05/2023 Procedure: Colonoscopy Indications: Screening for colorectal malignant neoplasm Providers: Florentino Lane M.D., Maria Luz Milton CRNA (Anesthesia Staff), Jonna Ball RN, Kamila, Whitesmith Referring MD: Roberto Calderon M.D. Medicines: Monitored [...] bowel preparation was evaluated using the BBPS ([place] Bowel Preparation Scale)with scores of: Right Colon [...] 10 years. Procedure Code(s): --- Professional --- 04106, Colonoscopy, flexible; with biopsy, singleor multiple Diagnosis Code(s): --- Professional --- Z12.11, Encounter for screening for malignantneoplasm of colon K64.4, Residual hemorrhoidal skin tags D12.8, Benign neoplasm of rectum K57.30, Diverticulosis of large intestine without perforation or abscess without bleeding CPT copyright 2020 [employer]. All rights reserved. The codes documented in this report are preliminary and upon health information coder reviewmay be revised to meet current compliance requirements. Florentino Lane M.D. 12/05/2023 9:45:19 AM Number of Addenda: 0 Note Initiated On: 12/05/2023 9:[address] AM us Florentino Lane MD ENDOSCOPY PROCEDURES Taylor l [...] data last revised 21. Testing performed by: [facility], [address] [place] [address]., [address] Blood 11/12/2023 1:15 PM CDT 11/12/2023 1:50 PM CDT Roberto Calderon MD LAB BLOOD ORDERABLES Final Re sult [facility] [address] [facility] Department [place] [address] from Last 3 Months or Most Recently Relevant to Health Maintenance Insurance [facility] CHOICE PLUS [facility] H[facility]/PPO Address: [facility] [address] [place] [address] [facility] H[facility]/PPO Address: [place] [address] [facility] CHOICE PLUS [facility] H[facility]/[place] [address] [facility] CHOICE PLUS [facility] H[facility]/PPO Address: [facility] [address] [phone] Care Teams County Assessor Relationship Specialty Start Date End Date Roberto Calderon MD PCP - General Family Medicine 06/08/22
--- OUTSIDE RECORDS SUMMARY | 2025-02-10 11:31 | XMS_ITS | Clinical Summary ---
Author Organization [facility] Address [address] [place] [address] Care Team Providers Care Launderer Hand Name Role Phone Roberto Calderon MD Primary Care Provider [phone] Social History Tobacco Use Types Packs/Day Years [...] of 2) 2021 COVID-19 Vaccine (3 - 2024-2 6 season) 2025 08/17/2020, 07/03/2020 Meningococcal B Vaccine Aged Out No l onger eligible based on patient's age to complete this topic Meningococcal Vaccine Aged Out No sandra scott eligible based on patient's age to complete this topic RSV Immunizations Under 20 Months Aged Out No longer eligible b ased on patient's age to complete this topic Insurance [facility] Care Teams Launderer Hand Relationship Specialty Start Date End Date Roberto Calderon MD [address] [phone] PCP - General FAMILY PRACTICE 11/16/23
[2025-02-10 13:21] LABS: Cholesterol 125 mg/dL (0-200); HDL Direct 24 mg/dL; Triglycerides 88 mg/dL (<150)
[2025-02-10 13:58] LABS: Thyroid Stimulating Hormone 3.160 uIU/mL (0.465-4.680)
[2025-02-14 00:07] LABS: Free Testosterone (Direct) 33.3 pg/mL (7.2-24.0)
== END 2025-02-10 10:47 | disposition home or self-care (01) ==
LOC: ANHGOSHLAB 10:47
PROVIDERS: PCP Internal Medicine; Visit Provider Internal Medicine
DX: E03.9 Hypothyroidism, unspecified (principal); E78.2 Mixed hyperlipidemia; R53.83 Other fatigue; Z13.29 Encounter for screening for other suspected endocrine disorder; Z13.0 Encounter for screening for diseases of the blood and blood-forming organs and certain disorders involving the immune mechanism; Z13.228 Encounter for screening for other metabolic disorders; Z12.5 Encounter for screening for malignant neoplasm of prostate; Z82.49 Family history of ischemic heart disease and other diseases of the circulatory system
CPT/HCPCS: 36415; 80061; 84402; 84403; 84443